=== PATIENT | female | born 1955 | race Caucasian/White ===

== ENCOUNTER 2020-11-21 11:29 | Emergency (ER) | payer OTHER ==
[2020-11-21 11:46] VITALS: TEMP 98.3; BMI 38.4
[2020-11-21 12:23] VITALS: PULSE 74
[2020-11-21 12:46] VITALS: BP 127/63
[2020-11-21 12:47] LABS: EPI CELLS 16 /uL (0-25.1); HYALINE CASTS 0 /uL (0-3.1); PH,URINE 5.5 (5.0-8.0); URINE APPEARANCE CLEAR; URINE BACTERIA 1613 /uL (0-1359); URINE BILIRUBIN NEGATIVE (NEGATIVE); URINE COLOR YELLOW; URINE GLUCOSE (UA) NEGATIVE (NEGATIVE); URINE KETONE NEGATIVE (NEGATIVE); URINE LEUK ESTERASE TRACE (NEGATIVE); URINE NITRITE NEGATIVE (NEGATIVE); URINE PROTEIN NEGATIVE (NEGATIVE); URINE RBC 22 /uL (0-23.9); URINE UROBILINOGEN 0.2 mg/dL (0.2-1.0); URINE WBC 14 /uL (0-25.8)
[2020-11-21 12:53] LABS: BASO % 0.6 % (0-2.0); EOS % 2.5 % (0-4.5); HEMATOCRIT 33.2 % (32.4-45.2); HEMOGLOBIN 11.2 GM/dL (10.7-15.3); MCH 25.3 pg (25.7-33.7); MCHC 33.6 g/dl (32.0-36.0); MEAN CELL VOLUME 75.3 fl (80-96); MEAN PLT VOLUME 7.1 fl (7.5-11.1); MONO % 6.8 % (3.8-10.2); NEUT % 71.1 % (42.8-82.8); PLATELET COUNT 379 10^3/uL (134-434); RBC 4.41 M/mm3 (3.60-5.2); RDW 17.1 % (11.6-15.6)
[2020-11-21 13:16] LABS: CHLORIDE 106 mmol/L (98-107); SODIUM 140 mmol/L (136-145)
[2020-11-21 13:18] LABS: CALCIUM 9.2 mg/dL (8.5-10.1)
[2020-11-21 13:19] LABS: ALBUMIN 3.7 g/dl (3.4-5.0); ANION GAP 9 MMOL/L (8-16); BLOOD UREA NITROGEN 18.4 mg/dL (7-18); CO2 25 mmol/L (21-32); GLUCOSE,RANDOM 96 mg/dL (74-106); MAGNESIUM 1.3 mg/dL (1.8-2.4)
[2020-11-21 13:22] LABS: CREATININE 0.8 mg/dL (0.55-1.3); PHOSPHOROUS 3.6 mg/dL (2.5-4.9); SGOT/AST 13 U/L (15-37); SGPT/ALT 16 U/L (13-61)
[2020-11-21 13:23] LABS: BILIRUBIN,TOTAL 0.4 mg/dL (0.2-1)
[2020-11-21 13:25] LABS: ALK PHOS 65 U/L (45-117)
[2020-11-21] MEDS ORDERED: CEFTRIAXONE 1,000 MG in DEXTROSE 5%-WATER - 50 ML IVPB ONE (13:44)
[2020-11-21] MEDS ORDERED: CEFTRIAXONE 1 GM/50 ML BAG ONE (13:55)
[2020-11-21] MEDS ORDERED: ACETAMINOPHEN 325 MG TABLET (FP) PO PRN (14:36)
[2020-11-21] MEDS ORDERED: ACETAMINOPHEN 325 MG TABLET (FP) ONE (14:39)
== END 2020-11-21 14:42 | disposition home or self-care (01) ==
LOC: JER 11:29
DX: N39.0 Urinary tract infection, site not specified (principal)
CPT/HCPCS: 36415; 70450-TC; 71045-TC-FY; 80053; 81003; 82550; 83735; 84100; 84484; 85025; 87086; 87186; 93005; 93010; 96374; 99285-25; C9803; U0003; U0005

== ENCOUNTER 2021-01-22 11:25 | Inpatient (IN) | payer OTHER ==
[2021-01-22] MEDS ORDERED: predniSONE 20 MG TABLET (UD) PO ONE (13:04)
[2021-01-22] MEDS: ALBUTEROL SO4 2.5/IPRATROPIUM 0.5 INH SOL 3 ML VIAL.NEB. NEB SCH ×5 (13:42→20:30)
[2021-01-22] MEDS ORDERED: ALBUTEROL SO4 2.5/IPRATROPIUM 0.5 INH SOL 3 ML VIAL.NEB. NEB ONE (13:44)
[2021-01-22] MEDS ORDERED: predniSONE 20 MG TABLET (UD) ONE (13:44)
[2021-01-22 14:02] LABS: HEMOGLOBIN 10.7 GM/dL (10.7-15.3); MCH 25.1 pg (25.7-33.7); MCHC 32.5 g/dl (32.0-36.0); MEAN CELL VOLUME 77.2 fl (80-96); MEAN PLT VOLUME 7.6 fl (7.5-11.1); PLATELET COUNT 321 10^3/uL (134-434); RBC 4.27 M/mm3 (3.60-5.2); RDW 17.4 % (11.6-15.6); WHITE BLOOD COUNT 11.4 K/mm3 (4.0-10.0)
[2021-01-22 14:28] LABS: SODIUM 140 mmol/L (136-145)
[2021-01-22 14:30] LABS: ALBUMIN 3.7 g/dl (3.4-5.0); CALCIUM 9.3 mg/dL (8.5-10.1); CO2 25 mmol/L (21-32); GLUCOSE,RANDOM 156 mg/dL (74-106)
[2021-01-22 14:31] LABS: BLOOD UREA NITROGEN 12.3 mg/dL (7-18); MAGNESIUM 1.4 mg/dL (1.8-2.4)
[2021-01-22 14:33] LABS: CREATININE 0.9 mg/dL (0.55-1.3)
[2021-01-22 14:34] LABS: SGOT/AST 28 U/L (15-37); SGPT/ALT 22 U/L (13-61)
[2021-01-22 14:35] LABS: BILIRUBIN,TOTAL 0.5 mg/dL (0.2-1); TOT PROT 6.9 g/dl (6.4-8.2)
[2021-01-22 14:36] LABS: ALK PHOS 59 U/L (45-117)
[2021-01-22 14:39] LABS: ANION GAP 8 MMOL/L (8-16); CHLORIDE 107 mmol/L (98-107); N-TERMINAL BNP 243.1 pg/ml (5-125)
[2021-01-22] MEDS ORDERED: MAGNESIUM SULF 50% (8.12 MEQ/2 ML-1 GM VIAL) IVPB ONE (14:42)
[2021-01-22] MEDS ORDERED: MAGNESIUM 1GM/D5W - 1 GM/100 ML IVPB IVPB ONE (14:54)
[2021-01-22 15:39] LABS: ANISOCYTOSIS 0; MACROCYTOSIS 0; PLATELET ESTIMATE NORMAL
[2021-01-22] MEDS ORDERED: NOREPINEPHRINE BITARTRATE 4 MG/4 ML ML IV ONE (16:21)
[2021-01-22] MEDS ORDERED: methylPREDNISolone NA SUCC 40 MG/1 ML VIAL IVPUSH SCH (22:00)
[2021-01-22] MEDS ORDERED: ACETAMINOPHEN 1000 MG/100 ML VIAL IVPB ONE (22:41)
[2021-01-22] MEDS: ATORVASTATIN CA 20 MG TABLET (FP) PO SCH (23:50)
[2021-01-23 00:16] VITALS: BMI 40.8
[2021-01-23 01:03] LABS: BASO % 0.2 % (0-2.0); HEMATOCRIT 31.7 % (32.4-45.2); HEMOGLOBIN 10.6 GM/dL (10.7-15.3); LYMPH % 9.7 % (8-40); MCH 24.9 pg (25.7-33.7); MCHC 33.3 g/dl (32.0-36.0); MEAN CELL VOLUME 74.7 fl (80-96); MEAN PLT VOLUME 7.1 fl (7.5-11.1); MONO % 2.2 % (3.8-10.2); NEUT % 87.9 % (42.8-82.8); PLATELET COUNT 348 10^3/uL (134-434); RBC 4.25 M/mm3 (3.60-5.2); RDW 16.8 % (11.6-15.6); WHITE BLOOD COUNT 10.5 K/mm3 (4.0-10.0)
[2021-01-23] MEDS ORDERED: LABETALOL HCL 200 MG TABLET (FP) PO ONE (02:11)
[2021-01-23] MEDS ORDERED: ACETAMINOPHEN 1000 MG/100 ML VIAL IVPB ONE (02:11)
[2021-01-23] MEDS: ALBUTEROL SO4 0.083% IH SOL 2.5 MG/3 ML VIAL.NEB. NEB PRN (03:22)
[2021-01-23] MEDS: LEVOTHYROXINE NA 125 MCG TABLET (FP) PO SCH (06:21)
[2021-01-23] MEDS: ALBUTEROL SO4 2.5/IPRATROPIUM 0.5 INH SOL 3 ML VIAL.NEB. NEB SCH ×4 (09:05→20:10)
[2021-01-23 09:58] LABS: ALBUMIN 3.4 g/dl (3.4-5.0); BLOOD UREA NITROGEN 18.5 mg/dL (7-18); CALCIUM 8.8 mg/dL (8.5-10.1)
[2021-01-23 09:59] LABS: MAGNESIUM 1.6 mg/dL (1.8-2.4)
[2021-01-23] MEDS ORDERED: ENOXAPARIN NA (PORCINE) 100 MG/1 ML DISP.SYRIN SQ SCH (10:00)
[2021-01-23] MEDS ORDERED: APIXABAN 5 MG TABLET PO SCH (10:00)
[2021-01-23 10:01] LABS: CREATININE 0.9 mg/dL (0.55-1.3)
[2021-01-23 10:02] LABS: PHOSPHOROUS 2.9 mg/dL (2.5-4.9)
[2021-01-23 10:03] LABS: BILIRUBIN,TOTAL 0.4 mg/dL (0.2-1); TOT PROT 6.6 g/dl (6.4-8.2)
[2021-01-23] MEDS: FENOFIBRIC ACID 135 MG CAP PO SCH (10:17)
[2021-01-23] MEDS: metoPROLOL SUCCINATE 25 MG TAB.SR.24H (FP) PO SCH (10:17)
[2021-01-23] MEDS: methylPREDNISolone NA SUCC 40 MG/1 ML VIAL IVPUSH SCH ×2 (10:17→17:47)
[2021-01-23] MEDS: ACETAMINOPHEN 325 MG TABLET (FP) PO PRN (17:48)
[2021-01-23] MEDS: ATORVASTATIN CA 20 MG TABLET (FP) PO SCH (21:13)
[2021-01-24] MEDS: methylPREDNISolone NA SUCC 40 MG/1 ML VIAL IVPUSH SCH ×3 (01:29→17:53)
[2021-01-24] MEDS: ACETAMINOPHEN 325 MG TABLET (FP) PO PRN ×2 (01:30→21:35)
[2021-01-24] MEDS: LEVOTHYROXINE NA 125 MCG TABLET (FP) PO SCH (06:35)
[2021-01-24 09:06] LABS: LYMPH % 8.6 % (8-40); MCH 25.1 pg (25.7-33.7); MCHC 32.4 g/dl (32.0-36.0); MEAN CELL VOLUME 77.6 fl (80-96); MEAN PLT VOLUME 7.9 fl (7.5-11.1); MONO % 2.7 % (3.8-10.2); NEUT % 88.7 % (42.8-82.8); PLATELET COUNT 331 10^3/uL (134-434); RDW 17.3 % (11.6-15.6); WHITE BLOOD COUNT 11.7 K/mm3 (4.0-10.0)
[2021-01-24] MEDS: ENOXAPARIN NA (PORCINE) 40 MG/0.4 ML DISP.SYRIN SQ SCH (09:10)
[2021-01-24 09:33] LABS: ALBUMIN 3.4 g/dl (3.4-5.0); BLOOD UREA NITROGEN 21.9 mg/dL (7-18); CALCIUM 9.6 mg/dL (8.5-10.1)
[2021-01-24 09:36] LABS: CREATININE 0.8 mg/dL (0.55-1.3)
[2021-01-24 09:37] LABS: BILIRUBIN,TOTAL 0.3 mg/dL (0.2-1); TOT PROT 6.6 g/dl (6.4-8.2)
[2021-01-24] MEDS: FAMOTIDINE 20 MG TABLET PO SCH (10:07)
[2021-01-24] MEDS: metoPROLOL SUCCINATE 25 MG TAB.SR.24H (FP) PO SCH (10:07)
[2021-01-24] MEDS: FENOFIBRIC ACID 135 MG CAP PO SCH (10:07)
[2021-01-24] MEDS: ALBUTEROL SO4 2.5/IPRATROPIUM 0.5 INH SOL 3 ML VIAL.NEB. NEB SCH ×3 (15:15→23:54)
[2021-01-24] MEDS: ATORVASTATIN CA 20 MG TABLET (FP) PO SCH (21:35)
[2021-01-25] MEDS: methylPREDNISolone NA SUCC 40 MG/1 ML VIAL IVPUSH SCH ×2 (01:09→09:10)
[2021-01-25] MEDS: ALBUTEROL SO4 0.083% IH SOL 2.5 MG/3 ML VIAL.NEB. NEB PRN (04:26)
[2021-01-25] MEDS ORDERED: FAMOTIDINE 20 MG/50 ML IVPB 20 MG/50 ML MG IVPB ONE (04:51)
[2021-01-25] MEDS: LEVOTHYROXINE NA 125 MCG TABLET (FP) PO SCH (06:17)
[2021-01-25] MEDS: ALBUTEROL SO4 2.5/IPRATROPIUM 0.5 INH SOL 3 ML VIAL.NEB. NEB SCH ×4 (09:00→19:49)
[2021-01-25] MEDS ORDERED: PT OWN MED DRAWER 7, Y5N ONE (09:02)
[2021-01-25] MEDS: FAMOTIDINE 20 MG TABLET PO SCH (09:09)
[2021-01-25] MEDS: metoPROLOL SUCCINATE 25 MG TAB.SR.24H (FP) PO SCH (09:10)
[2021-01-25] MEDS: FENOFIBRIC ACID 135 MG CAP PO SCH (09:10)
[2021-01-25] MEDS: ENOXAPARIN NA (PORCINE) 40 MG/0.4 ML DISP.SYRIN SQ SCH (09:11)
[2021-01-25 09:16] LABS: BASO % 0.1 % (0-2.0); HEMATOCRIT 31.5 % (32.4-45.2); HEMOGLOBIN 10.3 GM/dL (10.7-15.3); LYMPH % 10.3 % (8-40); MCHC 32.8 g/dl (32.0-36.0); MEAN CELL VOLUME 76.4 fl (80-96); MEAN PLT VOLUME 7.9 fl (7.5-11.1); MONO % 5.1 % (3.8-10.2); NEUT % 84.5 % (42.8-82.8); PLATELET COUNT 333 10^3/uL (134-434); RBC 4.12 M/mm3 (3.60-5.2); WHITE BLOOD COUNT 11.3 K/mm3 (4.0-10.0)
[2021-01-25 09:58] LABS: CALCIUM 9.1 mg/dL (8.5-10.1)
[2021-01-25 09:59] LABS: ALBUMIN 3.4 g/dl (3.4-5.0); BLOOD UREA NITROGEN 26.4 mg/dL (7-18)
[2021-01-25 10:00] LABS: MAGNESIUM 1.9 mg/dL (1.8-2.4)
[2021-01-25 10:02] LABS: CREATININE 0.8 mg/dL (0.55-1.3)
[2021-01-25 10:04] LABS: BILIRUBIN,TOTAL 0.2 mg/dL (0.2-1); TOT PROT 6.6 g/dl (6.4-8.2)
[2021-01-25] MEDS: predniSONE 20 MG TABLET (UD) PO SCH (14:51)
[2021-01-25] MEDS: ACETAMINOPHEN 325 MG TABLET (FP) PO PRN (21:21)
[2021-01-25] MEDS: ATORVASTATIN CA 20 MG TABLET (FP) PO SCH (21:21)
[2021-01-25] MEDS: BUDESONIDE/FORMETEROL FUMARATE 80/4.5 mcg INHALER IH SCH (21:22)
[2021-01-26] MEDS: LEVOTHYROXINE NA 125 MCG TABLET (FP) PO SCH (06:21)
[2021-01-26] MEDS: ALBUTEROL SO4 2.5/IPRATROPIUM 0.5 INH SOL 3 ML VIAL.NEB. NEB SCH ×4 (07:45→20:01)
[2021-01-26 09:19] LABS: EOS % 0.4 % (0-4.5); HEMATOCRIT 31.2 % (32.4-45.2); HEMOGLOBIN 10.4 GM/dL (10.7-15.3); LYMPH % 26.5 % (8-40); MCH 25.1 pg (25.7-33.7); MCHC 33.3 g/dl (32.0-36.0); MEAN CELL VOLUME 75.3 fl (80-96); MEAN PLT VOLUME 7.1 fl (7.5-11.1); MONO % 7.6 % (3.8-10.2); NEUT % 65.5 % (42.8-82.8); PLATELET COUNT 312 10^3/uL (134-434); RBC 4.14 M/mm3 (3.60-5.2); WHITE BLOOD COUNT 10.2 K/mm3 (4.0-10.0)
[2021-01-26] MEDS ORDERED: MAGNESIUM HYDROX 2400MG/30ML ORAL SUSPENSION 30 ML CUP PO ONE (09:19)
[2021-01-26] MEDS ORDERED: PT OWN MED DRAWER 7, Y5N ONE ×2 (09:31→09:33)
[2021-01-26] MEDS: predniSONE 20 MG TABLET (UD) PO SCH (09:38)
[2021-01-26] MEDS: FENOFIBRIC ACID 135 MG CAP PO SCH (09:38)
[2021-01-26] MEDS: FAMOTIDINE 20 MG TABLET PO SCH (09:38)
[2021-01-26] MEDS: ENOXAPARIN NA (PORCINE) 40 MG/0.4 ML DISP.SYRIN SQ SCH (09:38)
[2021-01-26] MEDS: BUDESONIDE/FORMETEROL FUMARATE 80/4.5 mcg INHALER IH SCH ×2 (09:38→21:35)
[2021-01-26] MEDS: metoPROLOL SUCCINATE 25 MG TAB.SR.24H (FP) PO SCH (09:38)
[2021-01-26 09:59] LABS: CALCIUM 9.2 mg/dL (8.5-10.1)
[2021-01-26 10:00] LABS: ALBUMIN 3.3 g/dl (3.4-5.0); BLOOD UREA NITROGEN 27.6 mg/dL (7-18); MAGNESIUM 2.1 mg/dL (1.8-2.4)
[2021-01-26 10:03] LABS: CREATININE 0.8 mg/dL (0.55-1.3)
[2021-01-26 10:05] LABS: BILIRUBIN,TOTAL 0.4 mg/dL (0.2-1); TOT PROT 6.2 g/dl (6.4-8.2)
[2021-01-26] MEDS ORDERED: clonazePAM 0.25 MG ODT TABLETS SL PRN (13:53)
[2021-01-26] MEDS: hydrALAZINE HCL 25 MG TABLET (FP) PO SCH ×2 (14:50→21:34)
[2021-01-26] MEDS: LORATADINE 10 MG TABLET PO SCH (14:50)
[2021-01-26] MEDS: SERTRALINE HCL 50 MG TABLET (FP) PO SCH (14:50)
[2021-01-26] MEDS: ACETAMINOPHEN 325 MG TABLET (FP) PO PRN (16:14)
[2021-01-26] MEDS: ATORVASTATIN CA 20 MG TABLET (FP) PO SCH (21:34)
[2021-01-26] MEDS ORDERED: SERTRALINE HCL 50 MG TABLET (FP) PO SCH (22:00)
[2021-01-27] MEDS: LEVOTHYROXINE NA 125 MCG TABLET (FP) PO SCH (06:11)
[2021-01-27] MEDS: ALBUTEROL SO4 2.5/IPRATROPIUM 0.5 INH SOL 3 ML VIAL.NEB. NEB SCH ×2 (07:35→11:23)
[2021-01-27] MEDS ORDERED: PT OWN MED DRAWER 7, Y5N ONE (09:52)
[2021-01-27] MEDS: hydrALAZINE HCL 25 MG TABLET (FP) PO SCH (09:54)
[2021-01-27] MEDS: SERTRALINE HCL 50 MG TABLET (FP) PO SCH (09:55)
[2021-01-27] MEDS: LORATADINE 10 MG TABLET PO SCH (09:55)
[2021-01-27] MEDS: ENOXAPARIN NA (PORCINE) 40 MG/0.4 ML DISP.SYRIN SQ SCH (09:56)
[2021-01-27] MEDS: BUDESONIDE/FORMETEROL FUMARATE 80/4.5 mcg INHALER IH SCH (09:56)
[2021-01-27] MEDS: predniSONE 20 MG TABLET (UD) PO SCH (09:57)
[2021-01-27] MEDS: FAMOTIDINE 20 MG TABLET PO SCH (09:57)
[2021-01-27] MEDS: metoPROLOL SUCCINATE 25 MG TAB.SR.24H (FP) PO SCH (09:57)
[2021-01-27] MEDS: FENOFIBRIC ACID 135 MG CAP PO SCH (09:57)
[2021-01-27] MEDS ORDERED: LOSARTAN POTASSIUM 25 MG TABLET PO SCH (10:00)
[2021-01-27] MEDS ORDERED: guaiFENesin 200 MG/10 ML 10 ML UNIT-DOSE CUPS PO ONE (12:20)
[2021-01-27 13:56] VITALS: BP 153/83; PULSE 110; TEMP 98
== END 2021-01-27 15:14 | DRG 191 ==
LOC: JER 11:25 → JERBED 15:33 → J8W 23:21
PROVIDERS: ADMIT Internal Medicine; ATTEND Nurse Practitioner Family
DX: J44.1 Chronic obstructive pulmonary disease with (acute) exacerbation (principal); Z68.41 Body mass index [BMI] 40.0-44.9, adult; I10 Essential (primary) hypertension; J44.0 Chronic obstructive pulmonary disease with (acute) lower respiratory infection; J20.9 Acute bronchitis, unspecified; E78.5 Hyperlipidemia, unspecified; E83.42 Hypomagnesemia; E03.9 Hypothyroidism, unspecified; F41.9 Anxiety disorder, unspecified; K21.9 Gastro-esophageal reflux disease without esophagitis; E66.01 Morbid (severe) obesity due to excess calories; Z86.718 Personal history of other venous thrombosis and embolism
CPT/HCPCS: 36415; 71045-TC-FY; 80053; 83036; 83735; 83880; 84100; 84484; 85025; 85379; 93005; 93010; 93306-TC; 93970-TC; 94010; 94640; 94761; 97116-GP; 97161-GP; 99285-25; C9803; J0131; U0003; U0005

== ENCOUNTER 2021-02-20 14:14 | Emergency (ER) | payer OTHER ==
[2021-02-20] MEDS ORDERED: FAMOTIDINE 20 MG/50 ML IVPB 20 MG/50 ML MG IVPB ONE (16:09)
[2021-02-20] MEDS ORDERED: MAG HYDROX/AL HYDROX/SIMETH 30 ML UNIT-DOSE CUP PO ONE (16:09)
[2021-02-20 16:34] VITALS: TEMP 98.1; BMI 40.2
[2021-02-20] MEDS ORDERED: MAG HYDROX/AL HYDROX/SIMETH 30 ML UNIT-DOSE CUP ONE (17:02)
[2021-02-20 17:22] LABS: BASO % 0.3 % (0-2.0); EOS % 2.6 % (0-4.5); HEMATOCRIT 33.7 % (32.4-45.2); HEMOGLOBIN 11.1 GM/dL (10.7-15.3); MCH 25.4 pg (25.7-33.7); MCHC 32.9 g/dl (32.0-36.0); MEAN CELL VOLUME 77.3 fl (80-96); MEAN PLT VOLUME 7.6 fl (7.5-11.1); MONO % 6.5 % (3.8-10.2); NEUT % 71.6 % (42.8-82.8); PLATELET COUNT 377 10^3/uL (134-434); RBC 4.37 M/mm3 (3.60-5.2); WHITE BLOOD COUNT 9.8 K/mm3 (4.0-10.0)
[2021-02-20 17:42] LABS: CHLORIDE 105 mmol/L (98-107); SODIUM 139 mmol/L (136-145)
[2021-02-20 17:44] LABS: BLOOD UREA NITROGEN 15.8 mg/dL (7-18); CALCIUM 9.5 mg/dL (8.5-10.1)
[2021-02-20 17:45] LABS: ALBUMIN 3.4 g/dl (3.4-5.0); ANION GAP 9 MMOL/L (8-16); CO2 25 mmol/L (21-32); GLUCOSE,RANDOM 143 mg/dL (74-106); MAGNESIUM 1.3 mg/dL (1.8-2.4)
[2021-02-20 17:47] LABS: SGPT/ALT 24 U/L (13-61)
[2021-02-20 17:48] LABS: SGOT/AST 10 U/L (15-37)
[2021-02-20 17:49] LABS: BILIRUBIN,TOTAL 0.2 mg/dL (0.2-1); TOT PROT 6.8 g/dl (6.4-8.2)
[2021-02-20 17:50] LABS: ALK PHOS 71 U/L (45-117)
[2021-02-20] MEDS ORDERED: MAGNESIUM SULF 50% (8.12 MEQ/2 ML-1 GM VIAL) IVPB ONE (17:51)
[2021-02-20] MEDS ORDERED: MAGNESIUM SULF 50% (8.12 MEQ/2 ML-1 GM VIAL) ONE (18:11)
[2021-02-20 18:32] VITALS: BP 157/78; PULSE 94
== END 2021-02-20 18:43 | disposition home or self-care (01) ==
LOC: JER 14:14
PROC: 3E033GC Introduction of Other Therapeutic Substance into Peripheral Vein, Percutaneous Approach (ICD-10-PCS; principal; 2021-02-20)
PROC: 3E033GC Introduction of Other Therapeutic Substance into Peripheral Vein, Percutaneous Approach (ICD-10-PCS; 2021-02-20)
DX: K21.9 Gastro-esophageal reflux disease without esophagitis (principal)
CPT/HCPCS: 36415; 80053; 83735; 84484; 85025; 93005; 93010; 99284-25

== ENCOUNTER 2021-07-30 11:53 | Observation (INO) | payer OTHER ==
[2021-07-30 14:02] LABS: BASO % 0.5 % (0-2.0); EOS % 0.4 % (0-4.5); HEMATOCRIT 36.1 % (32.4-45.2); HEMOGLOBIN 11.4 GM/dL (10.7-15.3); LYMPH % 11.4 % (8-40); MCH 24.7 pg (25.7-33.7); MCHC 31.7 g/dl (32.0-36.0); MEAN CELL VOLUME 77.8 fl (80-96); MEAN PLT VOLUME 7.6 fl (7.5-11.1); MONO % 3.7 % (3.8-10.2); PLATELET COUNT 360 10^3/uL (134-434); RBC 4.64 M/mm3 (3.60-5.2); RDW 17.8 % (11.6-15.6); WHITE BLOOD COUNT 14.8 K/mm3 (4.0-10.0)
[2021-07-30 14:06] LABS: EPI CELLS 21 /uL (0-25.1); HYALINE CASTS 1 /uL (0-3.1); PH,URINE 5.5 (5.0-8.0); URINE APPEARANCE CLEAR; URINE BACTERIA >9,000 /uL (0-1359); URINE BILIRUBIN NEGATIVE (NEGATIVE); URINE COLOR YELLOW; URINE GLUCOSE (UA) NEGATIVE (NEGATIVE); URINE KETONE NEGATIVE (NEGATIVE); URINE LEUK ESTERASE TRACE (NEGATIVE); URINE NITRITE POSITIVE (NEGATIVE); URINE PROTEIN NEGATIVE (NEGATIVE); URINE RBC 9 /uL (0-23.9); URINE UROBILINOGEN 0.2 mg/dL (0.2-1.0); URINE WBC 23 /uL (0-25.8)
[2021-07-30 14:29] LABS: CALCIUM 9.5 mg/dL (8.5-10.1)
[2021-07-30 14:31] LABS: ALBUMIN 3.7 g/dl (3.4-5.0); MAGNESIUM 1.9 mg/dL (1.8-2.4)
[2021-07-30 14:33] LABS: CREATININE 0.7 mg/dL (0.55-1.3); PHOSPHOROUS 4.1 mg/dL (2.5-4.9)
[2021-07-30 14:34] LABS: TOT PROT 7.1 g/dl (6.4-8.2)
[2021-07-30 14:35] LABS: ACTIVATED PTT 29.7 SECONDS (25.2-36.5); BILIRUBIN,TOTAL 0.3 mg/dL (0.2-1); INR 0.99 (0.83-1.09); PROTHROMBIN TIME (PATIENT) 11.4 SEC (9.7-13.0)
[2021-07-30 15:51] LABS: CALCIUM 9.4 mg/dL (8.5-10.1); CHLORIDE 104 mmol/L (98-107); SODIUM 135 mmol/L (136-145)
[2021-07-30 15:53] LABS: BLOOD UREA NITROGEN 18.8 mg/dL (7-18); CO2 22 mmol/L (21-32); GLUCOSE,RANDOM 166 mg/dL (74-106)
[2021-07-30 15:55] LABS: CREATININE 0.8 mg/dL (0.55-1.3)
[2021-07-30 15:56] LABS: ANION GAP 9 MMOL/L (8-16)
[2021-07-30 17:13] LABS: CALCIUM 9.8 mg/dL (8.5-10.1)
[2021-07-30 17:15] LABS: BLOOD UREA NITROGEN 17.6 mg/dL (7-18)
[2021-07-30 17:18] LABS: CREATININE 0.7 mg/dL (0.55-1.3)
[2021-07-30] MEDS ORDERED: CEPHALEXIN MONOHYDRATE 500 MG CAPSULE (UD) PO ONE (17:28)
[2021-07-30] MEDS ORDERED: CEPHALEXIN MONOHYDRATE 500 MG CAPSULE (UD) ONE (17:30)
[2021-07-30] MEDS ORDERED: SODIUM CHLORIDE 500 ML IV STA (21:18)
[2021-07-30] MEDS ORDERED: ALBUTEROL SO4 0.083% IH SOL 2.5 MG/3 ML VIAL.NEB. NEB PRN (22:49)
[2021-07-30] MEDS ORDERED: UMECLIDINIUM/VILANTEROL (ANORO) 62.5/25 MCG INHALER IH SCH (23:00)
[2021-07-30] MEDS ORDERED: cefTRIAXone SODIUM 1 GM VIAL ONE (23:54)
[2021-07-30] MEDS ORDERED: DEXTROSE 5%-WATER - 50 ML IVPB ONE (23:54)
[2021-07-30] MEDS: hydrALAZINE HCL 25 MG TABLET (FP) PO SCH (23:58)
[2021-07-30] MEDS: BUDESONIDE/FORMETEROL FUMARATE 80/4.5 mcg INHALER IH SCH (23:58)
[2021-07-30] MEDS: metoPROLOL SUCCINATE 25 MG TAB.SR.24H (FP) PO SCH (23:58)
[2021-07-30] MEDS: CEFTRIAXONE 1 GM in DEXTROSE 5%-WATER - 50 ML IVPB SCH (23:58)
[2021-07-31] MEDS: INSULIN SLIDING SCALE (NOVOLOG) 1 VIAL SQ SCH ×4 (00:03→16:54)
[2021-07-31] MEDS ORDERED: ACETAMINOPHEN 325 MG TABLET (FP) PO ONE (00:19)
[2021-07-31 02:34] VITALS: BMI 39.3
[2021-07-31] MEDS: LEVOTHYROXINE NA 125 MCG TABLET (FP) PO SCH (06:13)
[2021-07-31] MEDS: hydrALAZINE HCL 25 MG TABLET (FP) PO SCH ×3 (06:14→21:49)
[2021-07-31 07:47] LABS: BASO % 0.4 % (0-2.0); EOS % 1.3 % (0-4.5); HEMATOCRIT 34.6 % (32.4-45.2); HEMOGLOBIN 10.9 GM/dL (10.7-15.3); LYMPH % 30.8 % (8-40); MCH 24.7 pg (25.7-33.7); MCHC 31.5 g/dl (32.0-36.0); MEAN CELL VOLUME 78.4 fl (80-96); MEAN PLT VOLUME 7.9 fl (7.5-11.1); MONO % 6.9 % (3.8-10.2); NEUT % 60.6 % (42.8-82.8); PLATELET COUNT 357 10^3/uL (134-434); RBC 4.41 M/mm3 (3.60-5.2)
[2021-07-31] MEDS: ALBUTEROL SO4 2.5/IPRATROPIUM 0.5 INH SOL 3 ML VIAL.NEB. NEB SCH ×4 (08:10→20:38)
[2021-07-31 08:40] LABS: ALBUMIN 3.5 g/dl (3.4-5.0); CALCIUM 9.4 mg/dL (8.5-10.1)
[2021-07-31 08:42] LABS: MAGNESIUM 1.9 mg/dL (1.8-2.4)
[2021-07-31 08:44] LABS: CREATININE 0.8 mg/dL (0.55-1.3)
[2021-07-31 08:45] LABS: BILIRUBIN,TOTAL 0.6 mg/dL (0.2-1); TOT PROT 6.4 g/dl (6.4-8.2)
[2021-07-31] MEDS ORDERED: DEXTROSE 5%-WATER - 50 ML IVPB ONE (09:42)
[2021-07-31] MEDS ORDERED: cefTRIAXone SODIUM 1 GM VIAL ONE (09:42)
[2021-07-31] MEDS: ENOXAPARIN NA (PORCINE) 40 MG/0.4 ML DISP.SYRIN SQ SCH (09:54)
[2021-07-31] MEDS: CEFTRIAXONE 1 GM in DEXTROSE 5%-WATER - 50 ML IVPB SCH (09:54)
[2021-07-31] MEDS: metoPROLOL SUCCINATE 25 MG TAB.SR.24H (FP) PO SCH ×2 (09:55→21:49)
[2021-07-31] MEDS: PANTOPRAZOLE 40 MG TABLET PO SCH (09:55)
[2021-07-31] MEDS: FENOFIBRIC ACID 135 MG CAP PO SCH (11:34)
[2021-07-31] MEDS: BUDESONIDE/FORMETEROL FUMARATE 80/4.5 mcg INHALER IH SCH ×3 (11:34→21:49)
[2021-07-31] MEDS: ACETAMINOPHEN 325 MG TABLET (FP) PO PRN (14:14)
[2021-07-31] MEDS ORDERED: MAG HYDROX/AL HYDROX/SIMETH -MYLANTA- ORAL SUSPENSION PO PRN (18:01)
[2021-07-31] MEDS: clonazePAM 0.5 MG TABLET PO PRN (18:06)
[2021-07-31] MEDS ORDERED: MONTELUKAST NA 10 MG TABLET PO SCH (22:00)
[2021-07-31] MEDS ORDERED: ATORVASTATIN CA 20 MG TABLET (FP) PO SCH (22:00)
[2021-08-01] MEDS: hydrALAZINE HCL 25 MG TABLET (FP) PO SCH ×2 (06:19→15:37)
[2021-08-01] MEDS: LEVOTHYROXINE NA 125 MCG TABLET (FP) PO SCH (06:19)
[2021-08-01 08:20] LABS: BASO % 0.4 % (0-2.0); EOS % 1.3 % (0-4.5); HEMATOCRIT 34.5 % (32.4-45.2); LYMPH % 23.2 % (8-40); MCH 24.7 pg (25.7-33.7); MCHC 31.9 g/dl (32.0-36.0); MEAN CELL VOLUME 77.6 fl (80-96); MEAN PLT VOLUME 7.8 fl (7.5-11.1); NEUT % 69.1 % (42.8-82.8); PLATELET COUNT 355 10^3/uL (134-434); RBC 4.44 M/mm3 (3.60-5.2); RDW 17.9 % (11.6-15.6); WHITE BLOOD COUNT 12.1 K/mm3 (4.0-10.0)
[2021-08-01 08:41] LABS: BLOOD UREA NITROGEN 12.8 mg/dL (7-18); CALCIUM 9.2 mg/dL (8.5-10.1); MAGNESIUM 1.8 mg/dL (1.8-2.4)
[2021-08-01] MEDS: ALBUTEROL SO4 2.5/IPRATROPIUM 0.5 INH SOL 3 ML VIAL.NEB. NEB SCH ×3 (08:43→15:39)
[2021-08-01 08:44] LABS: CREATININE 0.6 mg/dL (0.55-1.3)
[2021-08-01] MEDS ORDERED: cefTRIAXone SODIUM 1 GM VIAL ONE (10:37)
[2021-08-01] MEDS ORDERED: DEXTROSE 5%-WATER - 50 ML IVPB ONE (10:37)
[2021-08-01] MEDS: FENOFIBRIC ACID 135 MG CAP PO SCH (10:59)
[2021-08-01] MEDS: PANTOPRAZOLE 40 MG TABLET PO SCH (10:59)
[2021-08-01] MEDS: CEFTRIAXONE 1 GM in DEXTROSE 5%-WATER - 50 ML IVPB SCH (10:59)
[2021-08-01] MEDS: BUDESONIDE/FORMETEROL FUMARATE 80/4.5 mcg INHALER IH SCH (10:59)
[2021-08-01] MEDS: metoPROLOL SUCCINATE 25 MG TAB.SR.24H (FP) PO SCH (10:59)
[2021-08-01] MEDS: ENOXAPARIN NA (PORCINE) 40 MG/0.4 ML DISP.SYRIN SQ SCH (10:59)
[2021-08-01] MEDS: ACETAMINOPHEN 325 MG TABLET (FP) PO PRN (11:01)
[2021-08-01] MEDS: clonazePAM 0.5 MG TABLET PO PRN (11:01)
[2021-08-01] MEDS ORDERED: CEPHALEXIN MONOHYDRATE 500 MG CAPSULE (UD) PO ONE (15:15)
[2021-08-01 15:45] VITALS: BP 137/92; PULSE 112; TEMP 98.2
== END 2021-08-01 17:12 ==
LOC: JER 11:53 → JERBED 16:38 → J4W 23:18
PROVIDERS: ADMIT Hospitalist
PROC: 3E0F7GC Introduction of Other Therapeutic Substance into Respiratory Tract, Via Natural or Artificial Opening (ICD-10-PCS; principal; 2021-07-30)
PROC: 3E023GC Introduction of Other Therapeutic Substance into Muscle, Percutaneous Approach (ICD-10-PCS; 2021-07-30)
PROC: 3E0337Z Introduction of Electrolytic and Water Balance Substance into Peripheral Vein, Percutaneous Approach (ICD-10-PCS; 2021-07-30)
DX: W18.39XA Other fall on same level, initial encounter (principal); Y93.89 Activity, other specified; Y92.099 Unspecified place in other non-institutional residence as the place of occurrence of the external cause; E66.8 Other obesity; Z68.39 Body mass index [BMI] 39.0-39.9, adult; R55 Syncope and collapse; S09.90XA Unspecified injury of head, initial encounter; R73.03 Prediabetes; N30.00 Acute cystitis without hematuria; E78.5 Hyperlipidemia, unspecified; J44.9 Chronic obstructive pulmonary disease, unspecified; E03.9 Hypothyroidism, unspecified; I10 Essential (primary) hypertension
CPT/HCPCS: 36415; 70450-TC; 71045-TC-FY; 72125-TC; 80048; 80053; 81003; 82962; 83036; 83735; 84100; 84443; 84484; 85025; 85610; 85730; 87086; 87186; 93005; 93010; 93306-TC; 93880-TC; 94640; 96361; 96372; 97116-GP; 97161-GP; 99285-25; C9803-CS; G0378; U0003; U0005

== ENCOUNTER 2022-04-29 11:47 | Inpatient (IN) | payer OTHER ==
[2022-04-29 13:34] LABS: BASO % 0.2 % (0-2.0); EOS % 0.3 % (0-4.5); HEMATOCRIT 37.7 % (32.4-45.2); HEMOGLOBIN 12.2 GM/dL (10.7-15.3); LYMPH % 11.4 % (8-40); MCH 26.2 pg (25.7-33.7); MCHC 32.4 g/dl (32.0-36.0); MEAN CELL VOLUME 80.8 fl (80-96); MEAN PLT VOLUME 7.3 fl (7.5-11.1); MONO % 4.2 % (3.8-10.2); NEUT % 83.9 % (42.8-82.8); PLATELET COUNT 379 10^3/uL (134-434); RBC 4.66 M/mm3 (3.60-5.2); RDW 16.5 % (11.6-15.6); WHITE BLOOD COUNT 15.8 K/mm3 (4.0-10.0)
[2022-04-29 13:35] LABS: VENOUS BASE EXCESS -1.2 mmol/L (-2-2); VENOUS O2 SATURATION 55.7 % (70-80); VENOUS PCO2 45.3 mmHg (38-52); VENOUS PH 7.352 (7.310-7.410)
[2022-04-29 13:38] LABS: EPI CELLS 13 /uL (0-25.1); HYALINE CASTS 0 /uL (0-3.1); PH,URINE 5.5 (5.0-8.0); URINE APPEARANCE CLEAR; URINE BACTERIA 49 /uL (0-1359); URINE BILIRUBIN NEGATIVE (NEGATIVE); URINE COLOR YELLOW; URINE GLUCOSE (UA) NEGATIVE (NEGATIVE); URINE KETONE NEGATIVE (NEGATIVE); URINE LEUK ESTERASE 1+ (NEGATIVE); URINE NITRITE NEGATIVE (NEGATIVE); URINE PROTEIN NEGATIVE (NEGATIVE); URINE RBC 15 /uL (0-23.9); URINE UROBILINOGEN 0.2 mg/dL (0.2-1.0); URINE WBC 33 /uL (0-25.8)
[2022-04-29 13:43] LABS: INR 1.05 (0.83-1.09); PROTHROMBIN TIME (PATIENT) 12.2 SEC (9.7-13.0)
[2022-04-29 13:45] LABS: ACTIVATED PTT 27.9 SECONDS (25.2-36.5)
[2022-04-29] MEDS ORDERED: CEFTRIAXONE 1,000 MG in DEXTROSE 5%-WATER - 50 ML IVPB ONE (13:45)
[2022-04-29 13:58] LABS: CALCIUM 9.8 mg/dL (8.5-10.1)
[2022-04-29 13:59] LABS: ALBUMIN 3.8 g/dl (3.4-5.0)
[2022-04-29] MEDS ORDERED: CEFTRIAXONE 1 GM/50 ML BAG ONE (14:01)
[2022-04-29 14:02] LABS: CREATININE 0.8 mg/dL (0.55-1.3)
[2022-04-29 14:03] LABS: BILIRUBIN,TOTAL 0.5 mg/dL (0.2-1)
[2022-04-29 14:04] LABS: TOT PROT 7.3 g/dl (6.4-8.2)
[2022-04-29 14:07] LABS: N-TERMINAL BNP 89.8 pg/ml (5-125)
[2022-04-29 14:40] LABS: BLOOD UREA NITROGEN 28.4 mg/dL (7-18)
[2022-04-29] MEDS ORDERED: clonazePAM 0.5 MG TABLET PO PRN (16:41)
[2022-04-29] MEDS ORDERED: ALBUTEROL SO4 0.083% IH SOL 2.5 MG/3 ML VIAL.NEB. NEB PRN (16:41)
[2022-04-29] MEDS ORDERED: guaiFENesin 600 MG TABLET.ER (FP) PO PRN (16:41)
[2022-04-29] MEDS ORDERED: ALBUTEROL SO4 HFA INHALER IH PRN (16:41)
[2022-04-29] MEDS ORDERED: metFORMIN HCL 500 MG TABLET (FP) ONE (19:42)
[2022-04-29] MEDS: ATORVASTATIN CA 20 MG TABLET (FP) PO SCH (21:36)
[2022-04-29] MEDS: hydrALAZINE HCL 25 MG TABLET (FP) PO SCH (21:36)
[2022-04-29] MEDS: metoPROLOL SUCCINATE 25 MG TAB.SR.24H (FP) PO SCH (21:37)
[2022-04-29] MEDS: MONTELUKAST NA 10 MG TABLET PO SCH (21:37)
[2022-04-29] MEDS: LIDOCAINE PATCH REMOVAL MC SCH (21:38)
[2022-04-29] MEDS ORDERED: PATIENT'S OWN MEDICATION (NON-FORMULARY) (Fluticasone Propionate [Flovent Diskus] 50 MCG B IH SCH (22:00)
[2022-04-30 05:17] VITALS: BMI 39.0
[2022-04-30] MEDS: LEVOTHYROXINE NA 125 MCG TABLET (FP) PO SCH (06:49)
[2022-04-30] MEDS: PANTOPRAZOLE 40 MG TABLET PO SCH (06:49)
[2022-04-30] MEDS: hydrALAZINE HCL 25 MG TABLET (FP) PO SCH ×4 (06:49→23:21)
[2022-04-30 08:54] LABS: HEMATOCRIT 34.2 % (32.4-45.2); HEMOGLOBIN 11.4 GM/dL (10.7-15.3); MCH 26.9 pg (25.7-33.7); MCHC 33.3 g/dl (32.0-36.0); MEAN CELL VOLUME 80.8 fl (80-96); MEAN PLT VOLUME 7.2 fl (7.5-11.1); PLATELET COUNT 355 10^3/uL (134-434); RBC 4.24 M/mm3 (3.60-5.2); RDW 16.8 % (11.6-15.6); WHITE BLOOD COUNT 13.3 K/mm3 (4.0-10.0)
[2022-04-30 09:14] LABS: BLOOD UREA NITROGEN 31.2 mg/dL (7-18); CALCIUM 9.1 mg/dL (8.5-10.1)
[2022-04-30 09:15] LABS: MAGNESIUM 1.9 mg/dL (1.8-2.4)
[2022-04-30 09:17] LABS: CREATININE 0.7 mg/dL (0.55-1.3); PHOSPHOROUS 3.9 mg/dL (2.5-4.9)
[2022-04-30] MEDS ORDERED: predniSONE 10 MG TABLET (UD) PO SCH (10:00)
[2022-04-30] MEDS: LIDOCAINE 5% TOPICAL PATCH TP SCH (11:28)
[2022-04-30] MEDS: ENOXAPARIN NA (PORCINE) 40 MG/0.4 ML DISP.SYRIN SQ SCH (11:29)
[2022-04-30] MEDS: SERTRALINE HCL 50 MG TABLET (FP) PO SCH (11:30)
[2022-04-30] MEDS: metoPROLOL SUCCINATE 25 MG TAB.SR.24H (FP) PO SCH ×2 (11:30→23:21)
[2022-04-30] MEDS: CYANOCOBALAMIN 1,000 MCG TABLET (FP) PO SCH (11:30)
[2022-04-30] MEDS: FERROUS SO4 325 MG TABLET (FP) PO SCH (11:30)
[2022-04-30] MEDS: MULTIVITAMINS (DAILY MVI) TABLET (FP) PO SCH (11:31)
[2022-04-30] MEDS: FLUTICASONE/UMECLIDIN/VILANTER(200-62.5-25 TRELEGY ELLIPTA) INAHLER IH SCH (14:09)
[2022-04-30] MEDS: FENOFIBRIC ACID 135 MG CAP PO SCH (14:10)
[2022-04-30] MEDS: HYDROCORTISONE 2.5% TOPICAL CREAM 30 GM TUBE RC SCH (14:10)
[2022-04-30] MEDS: DEXAMETHASONE SOD PHOSPHATE 10 MG/1 ML VIAL IVPUSH SCH (14:12)
[2022-04-30] MEDS: CEFTRIAXONE 1 GM in DEXTROSE 5%-WATER - 50 ML IVPB SCH (17:53)
[2022-04-30] MEDS: ATORVASTATIN CA 20 MG TABLET (FP) PO SCH (23:21)
[2022-04-30] MEDS: LIDOCAINE PATCH REMOVAL MC SCH (23:21)
[2022-04-30] MEDS: MONTELUKAST NA 10 MG TABLET PO SCH (23:21)
[2022-05-01] MEDS: hydrALAZINE HCL 25 MG TABLET (FP) PO SCH ×3 (06:12→21:34)
[2022-05-01] MEDS: LEVOTHYROXINE NA 125 MCG TABLET (FP) PO SCH (06:12)
[2022-05-01] MEDS: PANTOPRAZOLE 40 MG TABLET PO SCH (06:12)
[2022-05-01 08:01] LABS: BASO % 0.3 % (0-2.0); EOS % 0.1 % (0-4.5); HEMATOCRIT 36.3 % (32.4-45.2); HEMOGLOBIN 11.9 GM/dL (10.7-15.3); LYMPH % 16.3 % (8-40); MCH 26.3 pg (25.7-33.7); MCHC 32.9 g/dl (32.0-36.0); MEAN CELL VOLUME 79.7 fl (80-96); MEAN PLT VOLUME 7.2 fl (7.5-11.1); NEUT % 77.3 % (42.8-82.8); PLATELET COUNT 436 10^3/uL (134-434); RBC 4.55 M/mm3 (3.60-5.2); RDW 16.5 % (11.6-15.6); WHITE BLOOD COUNT 12.5 K/mm3 (4.0-10.0)
[2022-05-01] MEDS: FERROUS SO4 325 MG TABLET (FP) PO SCH (10:33)
[2022-05-01] MEDS: MULTIVITAMINS (DAILY MVI) TABLET (FP) PO SCH (10:33)
[2022-05-01] MEDS: metoPROLOL SUCCINATE 25 MG TAB.SR.24H (FP) PO SCH ×2 (10:33→21:34)
[2022-05-01] MEDS: ENOXAPARIN NA (PORCINE) 40 MG/0.4 ML DISP.SYRIN SQ SCH (10:33)
[2022-05-01] MEDS: CYANOCOBALAMIN 1,000 MCG TABLET (FP) PO SCH (10:33)
[2022-05-01] MEDS: SERTRALINE HCL 50 MG TABLET (FP) PO SCH (10:33)
[2022-05-01] MEDS: HYDROCORTISONE 2.5% TOPICAL CREAM 30 GM TUBE RC SCH (10:33)
[2022-05-01] MEDS: FENOFIBRIC ACID 135 MG CAP PO SCH (10:34)
[2022-05-01] MEDS: DEXAMETHASONE SOD PHOSPHATE 10 MG/1 ML VIAL IVPUSH SCH (10:34)
[2022-05-01] MEDS: CEFTRIAXONE 1 GM in DEXTROSE 5%-WATER - 50 ML IVPB SCH (10:34)
[2022-05-01] MEDS: FLUTICASONE/UMECLIDIN/VILANTER(200-62.5-25 TRELEGY ELLIPTA) INAHLER IH SCH (10:36)
[2022-05-01] MEDS: LIDOCAINE 5% TOPICAL PATCH TP SCH (10:36)
[2022-05-01 11:10] LABS: ALBUMIN 3.7 g/dl (3.4-5.0); BLOOD UREA NITROGEN 24.1 mg/dL (7-18)
[2022-05-01 11:11] LABS: CALCIUM 9.9 mg/dL (8.5-10.1)
[2022-05-01 11:13] LABS: CREATININE 0.7 mg/dL (0.55-1.3)
[2022-05-01 11:16] LABS: BILIRUBIN,TOTAL 0.4 mg/dL (0.2-1)
[2022-05-01 14:00] VITALS: RESP 20
[2022-05-01] MEDS: ATORVASTATIN CA 20 MG TABLET (FP) PO SCH (21:34)
[2022-05-01] MEDS: MONTELUKAST NA 10 MG TABLET PO SCH (21:34)
[2022-05-01] MEDS: LIDOCAINE PATCH REMOVAL MC SCH (21:35)
[2022-05-02] MEDS: PANTOPRAZOLE 40 MG TABLET PO SCH (06:51)
[2022-05-02] MEDS: hydrALAZINE HCL 25 MG TABLET (FP) PO SCH ×2 (06:51→15:03)
[2022-05-02 09:27] LABS: BASO % 0.1 % (0-2.0); EOS % 0.4 % (0-4.5); HEMATOCRIT 35.7 % (32.4-45.2); HEMOGLOBIN 11.7 GM/dL (10.7-15.3); LYMPH % 27.2 % (8-40); MCH 26.5 pg (25.7-33.7); MCHC 32.9 g/dl (32.0-36.0); MEAN CELL VOLUME 80.6 fl (80-96); MEAN PLT VOLUME 7.4 fl (7.5-11.1); MONO % 7.9 % (3.8-10.2); NEUT % 64.4 % (42.8-82.8); PLATELET COUNT 415 10^3/uL (134-434); RBC 4.42 M/mm3 (3.60-5.2); RDW 16.5 % (11.6-15.6); WHITE BLOOD COUNT 15.2 K/mm3 (4.0-10.0)
[2022-05-02 09:48] LABS: BLOOD UREA NITROGEN 26.4 mg/dL (7-18); CALCIUM 9.4 mg/dL (8.5-10.1)
[2022-05-02 09:49] LABS: ALBUMIN 3.7 g/dl (3.4-5.0)
[2022-05-02 09:52] LABS: CREATININE 0.8 mg/dL (0.55-1.3)
[2022-05-02 09:53] LABS: BILIRUBIN,TOTAL 0.5 mg/dL (0.2-1); TOT PROT 6.8 g/dl (6.4-8.2)
[2022-05-02] MEDS: ENOXAPARIN NA (PORCINE) 40 MG/0.4 ML DISP.SYRIN SQ SCH (11:00)
[2022-05-02] MEDS: CEFTRIAXONE 1 GM in DEXTROSE 5%-WATER - 50 ML IVPB SCH (11:00)
[2022-05-02] MEDS: MULTIVITAMINS (DAILY MVI) TABLET (FP) PO SCH (11:01)
[2022-05-02] MEDS: metoPROLOL SUCCINATE 25 MG TAB.SR.24H (FP) PO SCH (11:01)
[2022-05-02] MEDS: LIDOCAINE 5% TOPICAL PATCH TP SCH (11:01)
[2022-05-02] MEDS: DEXAMETHASONE SOD PHOSPHATE 10 MG/1 ML VIAL IVPUSH SCH (11:02)
[2022-05-02] MEDS: FERROUS SO4 325 MG TABLET (FP) PO SCH (11:02)
[2022-05-02] MEDS: SERTRALINE HCL 50 MG TABLET (FP) PO SCH (11:03)
[2022-05-02] MEDS: FENOFIBRIC ACID 135 MG CAP PO SCH (11:03)
[2022-05-02] MEDS: FLUTICASONE/UMECLIDIN/VILANTER(200-62.5-25 TRELEGY ELLIPTA) INAHLER IH SCH (11:05)
[2022-05-02] MEDS: HYDROCORTISONE 2.5% TOPICAL CREAM 30 GM TUBE RC SCH (11:05)
[2022-05-02] MEDS: LEVOTHYROXINE NA 125 MCG TABLET (FP) PO SCH (11:20)
[2022-05-02] MEDS: CYANOCOBALAMIN 1,000 MCG TABLET (FP) PO SCH (11:20)
[2022-05-02 14:22] VITALS: BP 149/70; PULSE 94; TEMP 97.5
== END 2022-05-02 16:25 | DRG 178 ==
LOC: JER 11:47 → JERBED 15:09 → J7W 20:27 → OBSVTOIN 04-30 14:51
PROVIDERS: ADMIT Internal Medicine
PROC: XW033E5 Introduction of Remdesivir Anti-infective into Peripheral Vein, Percutaneous Approach, New Technology Group 5 (ICD-10-PCS; principal; 2022-04-29)
DX: U07.1 COVID-19 (principal); J44.1 Chronic obstructive pulmonary disease with (acute) exacerbation; N39.0 Urinary tract infection, site not specified; R19.7 Diarrhea, unspecified; R51.9 Headache, unspecified; E66.9 Obesity, unspecified; E11.9 Type 2 diabetes mellitus without complications; D72.829 Elevated white blood cell count, unspecified; Z68.39 Body mass index [BMI] 39.0-39.9, adult; E03.9 Hypothyroidism, unspecified; F41.8 Other specified anxiety disorders; E78.5 Hyperlipidemia, unspecified
CPT/HCPCS: 0241U-QW; 36415; 71045-TC-FY; 71275-TC; 74176-TC; 80048; 80053; 81003; 82803; 82962; 83735; 83880; 84100; 84443; 84484; 85025; 85027; 85610; 85730; 86140; 87045; 87046; 87086; 87798; 87899; 93005; 93010; 97116-GP; 97161-GP; 99285-25; G0378; J1100; Q9967

== ENCOUNTER 2022-06-19 19:17 | Emergency (ER) | payer OTHER ==
[2022-06-19 19:28] VITALS: RESP 18; BMI 39.3
[2022-06-19 21:06] LABS: BASO % 0.7 % (0-2.0); EOS % 0.5 % (0-4.5); HEMATOCRIT 34.6 % (32.4-45.2); HEMOGLOBIN 11.4 GM/dL (10.7-15.3); LYMPH % 17.1 % (8-40); MCH 26.2 pg (25.7-33.7); MCHC 32.8 g/dl (32.0-36.0); MEAN CELL VOLUME 79.8 fl (80-96); MEAN PLT VOLUME 7.4 fl (7.5-11.1); MONO % 6.8 % (3.8-10.2); NEUT % 74.9 % (42.8-82.8); PLATELET COUNT 375 10^3/uL (134-434); RBC 4.34 M/mm3 (3.60-5.2); RDW 16.6 % (11.6-15.6); WHITE BLOOD COUNT 13.6 K/mm3 (4.0-10.0)
[2022-06-19 21:20] LABS: EPI CELLS 9 /uL (0-25.1); HYALINE CASTS 1 /uL (0-3.1); PH,URINE 5.5 (5.0-8.0); URINE APPEARANCE CLEAR; URINE BACTERIA 27 /uL (0-1359); URINE BILIRUBIN NEGATIVE (NEGATIVE); URINE COLOR YELLOW; URINE GLUCOSE (UA) NEGATIVE (NEGATIVE); URINE KETONE TRACE (NEGATIVE); URINE LEUK ESTERASE TRACE (NEGATIVE); URINE NITRITE NEGATIVE (NEGATIVE); URINE PROTEIN NEGATIVE (NEGATIVE); URINE RBC 15 /uL (0-23.9); URINE UROBILINOGEN 0.2 mg/dL (0.2-1.0); URINE WBC 5 /uL (0-25.8)
[2022-06-19 21:49] LABS: ALBUMIN 3.4 g/dl (3.4-5.0); CALCIUM 9.3 mg/dL (8.5-10.1)
[2022-06-19 21:50] LABS: BLOOD UREA NITROGEN 18.9 mg/dL (7-18); MAGNESIUM 1.5 mg/dL (1.8-2.4)
[2022-06-19 21:54] LABS: BILIRUBIN,TOTAL 0.5 mg/dL (0.2-1); TOT PROT 6.9 g/dl (6.4-8.2)
[2022-06-19] MEDS ORDERED: ACETAMINOPHEN 1000 MG/100 ML BAG IVPB ONE (22:27)
[2022-06-19] MEDS ORDERED: ACETAMINOPHEN INJECTION 100 ML IVPB ONE (22:28)
[2022-06-19 23:07] VITALS: TEMP 97.8
[2022-06-19 23:36] LABS: BLOOD UREA NITROGEN 19.9 mg/dL (7-18)
[2022-06-20] MEDS ORDERED: ACETAMINOPHEN 1000 MG/100 ML BAG IVPB ONE (02:45)
[2022-06-20] MEDS ORDERED: ACETAMINOPHEN INJECTION 100 ML IVPB ONE (02:48)
[2022-06-20 05:17] VITALS: BP 178/86; PULSE 77
== END 2022-06-20 05:18 | disposition home or self-care (01) ==
LOC: JER 19:17
PROC: 3E0333Z Introduction of Anti-inflammatory into Peripheral Vein, Percutaneous Approach (ICD-10-PCS; principal; 2022-06-19)
DX: R26.9 Unspecified abnormalities of gait and mobility (principal); R11.0 Nausea; M25.572 Pain in left ankle and joints of left foot; M54.9 Dorsalgia, unspecified
CPT/HCPCS: 0241U-QW; 36415; 71045-TC-FY; 72170-TC-FY; 73610-TC-LT-FY; 73630-TC-LT; 80048; 80053; 81003; 83690; 83735; 84484; 85025; 87086; 93005; 93010; 99285-25

== ENCOUNTER 2022-11-05 19:43 | Emergency (ER) | payer OTHER ==
[2022-11-05 20:14] VITALS: BP 138/72; PULSE 100; RESP 19; TEMP 98.2; BMI 43.9
[2022-11-05 21:46] LABS: BASO % 0.2 % (0-2.0); EOS % 0.5 % (0-4.5); HEMATOCRIT 36.2 % (32.4-45.2); HEMOGLOBIN 11.7 GM/dL (10.7-15.3); MCH 25.5 pg (25.7-33.7); MCHC 32.4 g/dl (32.0-36.0); MEAN CELL VOLUME 78.9 fl (80-96); MONO % 6.4 % (3.8-10.2); NEUT % 76.9 % (42.8-82.8); PLATELET COUNT 366 10^3/uL (134-434); RBC 4.59 M/mm3 (3.60-5.2); RDW 16.4 % (11.6-15.6); WHITE BLOOD COUNT 14.3 K/mm3 (4.0-10.0)
[2022-11-05 21:48] LABS: PH,URINE 5.5 (5.0-8.0); URINE APPEARANCE CLEAR; URINE BILIRUBIN NEGATIVE (NEGATIVE); URINE COLOR YELLOW; URINE GLUCOSE (UA) NEGATIVE (NEGATIVE); URINE KETONE NEGATIVE (NEGATIVE); URINE LEUK ESTERASE NEGATIVE (NEGATIVE); URINE NITRITE NEGATIVE (NEGATIVE); URINE PROTEIN NEGATIVE (NEGATIVE); URINE UROBILINOGEN 0.2 mg/dL (0.2-1.0)
[2022-11-05 21:59] LABS: INR 0.99 (0.83-1.09); PROTHROMBIN TIME (PATIENT) 11.5 SEC (9.7-13.0)
[2022-11-05 22:02] LABS: ACTIVATED PTT 27.8 SECONDS (25.2-36.5)
[2022-11-05 22:14] LABS: POTASSIUM 3.9 mmol/L (3.5-5.1)
[2022-11-05 22:17] LABS: ALBUMIN 3.7 g/dl (3.4-5.0); MAGNESIUM 1.7 mg/dL (1.8-2.4)
[2022-11-05 22:20] LABS: CREATININE 0.7 mg/dL (0.55-1.3)
[2022-11-05 22:21] LABS: BILIRUBIN,TOTAL 0.2 mg/dL (0.2-1); TOT PROT 6.8 g/dl (6.4-8.2)
[2022-11-05 22:33] LABS: N-TERMINAL BNP 140.2 pg/ml (5-125)
== END 2022-11-06 11:21 ==
LOC: JER 19:43
DX: R42 Dizziness and giddiness (principal); R06.09 Other forms of dyspnea; Z20.822 Contact with and (suspected) exposure to COVID-19
CPT/HCPCS: 0241U-QW; 36415; 70450-TC; 71045-TC-FY; 80053; 81003; 83735; 83880; 84484; 85025; 85610; 85730; 93005; 93010; 99285-25

== ENCOUNTER 2023-04-10 18:56 | Emergency (ER) | payer OTHER ==
[2023-04-10 19:38] VITALS: BMI 40.2
[2023-04-10] MEDS ORDERED: ACETAMINOPHEN 500 MG TABLET (FP) PO ONE (19:49)
[2023-04-10] MEDS ORDERED: LIDOCAINE 4% PATCH TP ONE ×2 (19:56→20:00)
[2023-04-10] MEDS ORDERED: ACETAMINOPHEN 325 MG TABLET (FP) ONE (20:00)
[2023-04-10] MEDS ORDERED: LIDOCAINE PATCH REMOVAL MC SCH (22:00)
[2023-04-11 02:19] VITALS: BP 174/76; PULSE 72; RESP 16; TEMP 98.3
== END 2023-04-11 02:32 | disposition home or self-care (01) ==
LOC: JER 18:56
DX: M54.6 Pain in thoracic spine (principal); M54.50 Low back pain, unspecified
CPT/HCPCS: 72128-TC; 72131-TC; 72192-TC; 99284-25